=== PATIENT | male | born 1980 | race African-American/Black ===

== ENCOUNTER 2018-11-17 16:37 | Inpatient (IN) ==
[2018-11-17] MEDS ORDERED: MoRPHine SULFATE 4 MG/ML 1 ML CARP\\VIAL IV STA (17:45)
[2018-11-17] MEDS ORDERED: ONDANSETRON INJ 2 MG/ML 2 ML VIAL IV STA (17:45)
[2018-11-17] MEDS ORDERED: SODIUM CHLORIDE 0.9% 1000ML 1,000 ML IV SCH (17:45)
[2018-11-17] MEDS ORDERED: ACETAMINOPHEN 1000 MG/100 ML IV IV STA (17:48)
[2018-11-17 18:10] LABS: Basophils # (auto) 0.04 K/uL (0-0.2); Basophils % (auto) 0.2 %; Eosinophils # (auto) 0.26 K/uL (0-0.5); Eosinophils % (auto) 1.3 %; Hematocrit (blood only) 44.3 % (42-52); Immature Granulocytes # (auto) 0.06 K/uL (0.00-0.02); Immature Granulocytes % (auto) 0.3 %; Lymphocytes # (auto) 2.73 K/uL (1.2-3.4); Lymphocytes % (auto) 13.5 %; Mean Corpuscular Hemoglobin 31.7 pg (25-34); Mean Corpuscular Hgb Conc 36.1 g/dL (32-36); Mean Corpuscular Volume 87.9 fL (80-100); Mean Platelet Volume 9.7 fL (7.4-10.4); Monocytes # (auto) 1.67 K/uL (0.11-0.59); Monocytes % (auto) 8.3 %; Neutrophils # (auto) 15.41 K/uL (1.4-6.5); Neutrophils % (auto) 76.4 %; Platelet Count 225 K/uL (130-400); RDW Coefficient of Variation 12.5 % (11.5-14.5); Red Blood Count 5.04 M/uL (4.7-6.1); White Blood Count 20.17 K/uL (4.8-10.8)
[2018-11-17 18:22] LABS: INR 1.1 (0.9-1.1); Partial Thromboplastin Ratio 1.1; Partial Thromboplastin Time 28.8 Seconds (21.0-31.0); Prothrombin Time 10.9 Seconds (9.0-12.0)
[2018-11-17 18:35] LABS: Albumin Level 3.5 gm/dl (3.4-5.0); BUN Creatinine Ratio 14.3 (10-20); Calcium 8.9 mg/dl (8.5-10.1); Creatinine Clr Calc Pharmacy 129.1 ml/min; Est GFR (African American) 123.6; Est GFR (Non-African American) 106.6
[2018-11-17 18:40] LABS: Albumin Globulin Ratio 0.8 (0.9-2); Bilirubin,Total 1.3 mg/dl (0.2-1); Globulin 4.3 gm/dl (2.5-4.0); Lipase 68 U/L (73-393); Magnesium 2.3 mg/dl (1.8-2.4); Total Protein 7.8 gm/dl (6.4-8.2); Troponin I < 0.015 ng/ml (0-0.045)
--- NOTE | 2018-11-17 19:09 | Emergency Department Note ---
History of Present Illness General Chief complaint: Abdominal Pain Stated complaint: REBOUND TENDERNESS EPIGASTRIC AREA Time Seen by Provider: 11/17/18 17:34 History of Present Illness Maximum Pain Intensity: 7 This is a 38-year-old male that presents to the emergency department via private vehicle with immigration services officer escort [facility] with complaints of "abdominal pain". The patient notes that for the past 4 days he has been expensing epigastric abdominal pain that radiates to the right side. He had this before one time in May but has not had it since then up until 4 days ago. He rates the overall pain is a 7/10. He also feels chills. He denies any pertinent past medical problems. He denies any chest pain or shortness of breath. Home Medications Home Medications Medication Instructions Recorded Confirmed Type levalbuterol tartrate [Xopenex HFA] 2 inh INHALATION QID PRN 02/06/18 11/17/18 History Allergies Allergy/AdvReac Type Severity Reaction Status Date / Time No Known Allergies Allergy Unverified 11/17/18 18:20 Past Med/Surg History Medical History Asthma Surgical History No pertinent past surgical history Social History Preferred Language: Armenian Current Living Situation: Other Current Living Situation Comment: Detention Feels Safe at Home: Yes Smoking Status: Former smoker Review of Systems A total of 10 systems reviewed and were otherwise negative Physical Exam Vital Signs Vital Signs - 24 hr 11/17/18 16:41 11/17/18 17:38 11/17/18 17:56 Temperature 38.7 C H Temperature Source Oral Sepsis Recent Fever Within 48 Hours Yes Sepsis New/Unexplained Change in Mental Status No Sepsis Action Taken by Nursing No Action Required Pulse Rate 97 H 90 86 Pulse Rate [Apical] Pulse Rate from SpO2 Sensor 87 Pulse Rhythm Regular Respiratory Rate 18 20 27 H Respiratory Effort / Characteristics Non-Labored Spontaneous Respiratory Depth Normal Blood Pressure 142/85 H Blood Pressure [Left Arm] Blood Pressure Mean 104 Blood Pressure Mean [Left Arm] Blood Pressure Position Sitting Pulse Oximetry 97 97 96 Oxygen Delivery Method Room Air Room Air 11/17/18 18:00 08/21/19 18:38 11/17/18 19:00 Temperature Temperature Source Sepsis Recent Fever Within 48 Hours Sepsis New/Unexplained Change in Mental Status Sepsis Action Taken by Nursing Pulse Rate 90 89 Pulse Rate [Apical] 90 Pulse Rate from SpO2 Sensor 89 88 Pulse Rhythm Respiratory Rate 24 20 34 H Respiratory Effort / Characteristics Respiratory Depth Blood Pressure Blood Pressure [Left Arm] 133/75 Blood Pressure Mean Blood Pressure Mean [Left Arm] 94 Blood Pressure Position Pulse Oximetry 95 97 96 Oxygen Delivery Method Room Air 11/17/18 19:03 11/17/18 20:00 11/17/18 20:46 Temperature 37.2 C Temperature Source Oral Sepsis Recent Fever Within 48 Hours Sepsis New/Unexplained Change in Mental Status Sepsis Action Taken by Nursing Pulse Rate 98 H 81 Pulse Rate [Apical] Pulse Rate from SpO2 Sensor Pulse Rhythm Respiratory Rate 18 20 Respiratory Effort / Characteristics Respiratory Depth Blood Pressure 133/75 129/72 Blood Pressure [Left Arm] Blood Pressure Mean 94 91 Blood Pressure Mean [Left Arm] Blood Pressure Position Pulse Oximetry 97 Oxygen Delivery Method Room Air VITAL SIGNS - Vital signs and nursing notes were reviewed. Stable however the patient is tachycardic and febrile. GENERAL -38-year-old male appearing his stated age who is in no acute distress but appears ill. Communicates well with provider and answers questions appropriately. SKIN - Without rashes. No meningeal or petechial rash. HEAD - NC/AT. EYES - PERRL with EOMI bilaterally. Sclera anicteric. EARS - No deformities of external structures noted on gross examination b ilaterally. NOSE - Midline and without cyanosis. No epistaxis or purulent drainage noted. MOUTH/OROPHARYNX - Without perioral cyanosis. NECK - Neck with FROM. Supple to palpation. No lymphadenopathy noted. No nuchal rigidity. LUNGS - Chest wall symmetric without accessory muscle use, intercostals retractions, or central cyanosis. Normal vesicular breath sounds CTA B/L. No wheezes, rales, or rhonchi appreciated. CARDIAC - RRR with S1/S2. No murmur, rubs, or gallops appreciated. ABDOMEN - Abdominal contour normal without pulsations or visible masses. BS normoactive all four quadrants. Patient is exquisitely tender to palpation in the epigastric right upper quadrant. No palpable masses, hepatosplenomegaly, or ascites noted. EXTREMITIES - No clubbing or peripheral cyanosis. No pretibial edema present. +5/5 strength noted in UE/LE bilaterally. NEUROLOGIC - Cranial nerves II through XII grossly intact. Sensory intact to light touch throughout. PSYCH - A&Ox3 and cooperates fully with examiner. Pt is very pleasant and interacts well with examiner. Course Administered Medications Hydrocodone Bitart/Acetaminophen (Edmond 5/325) 2 tab PO [id number] PRN PRN Reason: Pain Stop: 12/02/18 00:22 Last Admin: 11/18/18 00:59 Dose: 2 tab Documented by: [id number] Sodium Chloride (Nss 1000ml) 1,000 mls @ 80 mls/hr IV .[id number] WAI Stop: 12/18/18 00:22 Last Admin: 11/18/18 00:55 Dose: 80 mls/hr Documented by: [id number] Discontinued Medications Acetaminophen (Ofirmev) 1,000 mg IV NOW STA Stop: 11/17/18 17:49 Last Admin: 11/17/18 19:01 Dose: 1,000 mg Documented by: [id number] Bupivacaine HCl (Marcaine 0.5% Mpf) Confirm Administered Dose 30 ml .ROUTE .STK- MED ONE Stop: 11/17/18 20:25 Last Admin: 11/17/18 22:09 Dose: 10 ml Documented by: [id number] Sodium Chloride (Nss 1000ml) 1,000 mls @ 999 mls/hr IV .[id number] WAI Stop: 11/17/18 18:45 Last Infusion: 11/17/18 20:38 Dose: 0 mls/hr Documented by: [id number] Admin: 11/17/18 19:02 Dose: 999 mls/hr Documented by: [id number] Acetaminophen (Ofirmev) 1,000 mg in 100 mls @ 400 mls/hr IV NOW ONE Stop: 11/18/18 00:37 Last Admin: 11/18/18 00:55 Dose: 400 mls/hr Documented by: [id number] Ioversol (Optiray 320 100ml) 94 ml IV ONCE PRN PRN Reason: Interaction Checking Stop: 11/21/18 19:47 Last Admin: 11/17/18 19:48 Dose: 94 ml Documented by: [id number] Miscellaneous (Floseal Hemostatic Matrix 10ml) 10 ml TOP ONCE ONE Stop: 11/17/18 21:56 Last Admin: 11/17/18 22:11 Dose: 10 ml Documented by: [id number] Morphine Sulfate (Morphine Sulfate) 4 mg IV NOW STA Stop: 11/17/18 17:46 Last Admin: 11/17/18 19:01 Dose: 4 mg Documented by: [id number] Ondansetron HCl (Zofran) 4 mg IV NOW STA Stop: 11/17/18 17:46 Last Admin: 11/17/18 19:01 Dose: 4 mg Documented by: [id number] Piperacillin Sod/Tazobactam Sod (Zosyn) Confirm Administered Dose 4.5 gm .ROUTE .STK-MED ONE Stop: 11/17/18 20:31 Last Admin: 11/17/18 20:39 Dose: 4.5 gm Documented by: [id number] Medical Decision Making Laboratory Data Result diagrams: 11/17/18 17:59 11/17/18 17:59 Lab Results 11/17/18 11/17/18 11/17/18 Range/Units 17:59 17:59 17:59 WBC 20.17 H (4.8-10.8) K/uL RBC 5.04 (4.7-6.1) M/uL Hgb 16.0 (14.0-18.0) g/dL Hct 44.3 (42-52) % MCV 87.9 (80-100) fL MCH 31.7 (25-34) pg MCHC 36.1 H (32-36) g/dL RDW Std Deviation 40.0 (36.4-46.3) fL RDW Coeff of Macrina 12.5 (11.5-14.5) % Plt Count 225 (130-400) K/uL MPV 9.7 (7.4-10.4) fL Immature Gran % (Auto) 0.3 % Neut % (Auto) 76.4 % Lymph % (Auto) 13.5 % Antelope % (Auto) 8.3 % Eos % (Auto) 1.3 % Baso % (Auto) 0.2 % Immature Gran # (Auto) 0.06 H (0.00-0.02) K/uL Neut # (Auto) 15.41 H (1.4-6.5) K/uL Lymph # (Auto) 2.73 (1.2-3.4) K/uL Antelope # (Auto) 1.67 H (0.11-0.59) K/uL Eos # (Auto) 0.26 (0-0.5) K/uL Baso # (Auto) 0.04 (0-0.2) K/uL PT 10.9 (9.0-12.0) Seconds INR 1.1 (0.9-1.1) APTT 28.8 (21.0-31.0) Seconds PTT Ratio 1.1 Sodium 138 (136-145) mmol/L Potassium 4.0 (3.5-5.1) mmol/L Chloride 108 H (98-107) mmol/L Carbon Dioxide 24 (21-32) mmol/L Anion Gap 5.0 (3-11) BUN 13 (7-18) mg/dl Creatinine 0.92 (0.6-1.4) mg/dl Est Cr Clr Drug Dosing 129.1 ml/min Est GFR ( Amer) 123.6 Est GFR (Non-Af Amer) 106.6 BUN/Creatinine Ratio 14.3 (10-20) Glucose 103 H (70-99) mg/dl Lactate (0.4-2.0) mmol/L Calcium 8.9 (8.5-10.1) mg/dl Magnesium (1.8-2.4) mg/dl Total Bilirubin 1.3 H (0.2-1) mg/dl AST 21 (15-37) U/L ALT 39 (12-78) U/L Alkaline Phosphatase 84 (45-117) U/L Troponin I (0-0.045) ng/ml Total Protein 7.8 (6.4-8.2) gm/dl Albumin 3.5 (3.4-5.0) gm/dl Globulin 4.3 H (2.5-4.0) gm/dl Albumin/Globulin Ratio 0.8 L (0.9-2) Lipase (73-393) U/L Urine Color Urine Appearance (Clear) Urine pH (4.5-7.5) Ur Specific Parker (1.000-1.030) Urine Protein (Negative) Urine Glucose (UA) (Negative) Urine Ketones (Negative) Urine Blood (Negative) Urine Nitrite (Negative) Urine Bilirubin (Negative) Urine Urobilinogen (Negative) Ur Leukocyte Esterase (Negative) Urine WBC (Auto) (0-5) /hpf Urine RBC (Auto) (0-4) /hpf U Hyaline Cast (Auto) (0-5) /lpf U Epithel Cells (Auto) (0-5) /lpf Urine Bacteria (Auto) (Negative) 11/17/18 11/17/18 11/17/18 Range/Units 17:59 17:59 20:35 WBC (4.8-10.8) K/uL RBC (4.7-6.1) M/uL Hgb (14.0-18.0) g/dL Hct (42-52) % MCV (80-100) fL MCH (25-34) pg MCHC (32-36) g/dL RDW Std Deviation (36.4-46.3) fL RDW Coeff of Macrina (11.5-14.5) % Plt Count (130-400) K/uL MPV (7.4-10.4) fL Immature Gran % (Auto) % Neut % (Auto) % Lymph % (Auto) % Antelope % (Auto) % Eos % (Auto) % Baso % (Auto) % Immature Gran # (Auto) (0.00-0.02) K/uL Neut # (Auto) (1.4-6.5) K/uL Lymph # (Auto) (1.2-3.4) K/uL Antelope # (Auto) (0.11-0.59) K/uL Eos # (Auto) (0-0.5) K/uL Baso # (Auto) (0-0.2) K/uL PT (9.0-12.0) Seconds INR (0.9-1.1) APTT (21.0-31.0) Seconds PTT Ratio Sodium (136-145) mmol/L Potassium (3.5-5.1) mmol/L Chloride (98-107) mmol/L Carbon Dioxide (21-32) mmol/L Anion Gap (3-11) BUN (7-18) mg/dl Creatinine (0.6-1.4) mg/dl Est Cr Clr Drug Dosing ml/min Est GFR ( Amer) Est GFR (Non-Af Amer) BUN/Creatinine Ratio (10-20) Glucose (70-99) mg/dl Lactate 0.8 (0.4-2.0) mmol/L Calcium (8.5-10.1) mg/dl Magnesium 2.3 (1.8-2.4) mg/dl Total Bilirubin (0.2-1) mg/dl AST (15-37) U/L ALT (12-78) U/L Alkaline Phosphatase (45-117) U/L Troponin I < 0.015 (0-0.045) ng/ml Total Protein (6.4-8.2) gm/dl Albumin (3.4-5.0) gm/dl Globulin (2.5-4.0) gm/dl Albumin/Globulin Ratio (0.9-2) Lipase 68 L (73-393) U/L Urine Color Dark Yellow Urine Appearance Clear (Clear) Urine pH 6.5 (4.5-7.5) Ur Specific Parker 1.035 H (1.000-1.030) Urine Protein Trace H (Negative) Urine Glucose (UA) Negative (Negative) Urine Ketones 1+ H (Negative) Urine Blood Trace H (Negative) Urine Nitrite Negative (Negative) Urine Bilirubin Negative (Negative) Urine Urobilinogen Negative (Negative) Ur Leukocyte Esterase Negative (Negative) Urine WBC (Auto) 1-5 (0-5) /hpf Urine RBC (Auto) 5-10 H (0-4) /hpf U Hyaline Cast (Auto) 1-5 (0-5) /lpf U Epithel Cells (Auto) 10-20 H (0-5) /lpf Urine Bacteria (Auto) Negative (Negative) Imaging Data Radiologist's Impression: CT abd pelvis IV con only CT DOSE: 994.06 mGy.cm HISTORY: Pain. Nausea. epigastric abd pain TECHNIQUE: Multiaxial CT images of the abdomen and pelvis were performed following the use of intravenous contrast. A dose lowering technique was utilized adhering to the principles of ALARA. COMPARISON STUDY: None. FINDINGS: Lung bases are clear. Liver spleen and pancreas are unremarkable. Moderate gallbladder wall thickening with a least one 1 cm calcification in the gallbladder neck. Moderate pericholecystic edematous and/or infiltrative change. This appearance is suggestive of acute cholecystitis. The adrenal glands are normal. The kidneys enhance uniformly. Nonobstructive bowel pattern. Normal appendix. Bladder is midline. No free fluid within the pelvic cul-de-sac. IMPRESSION: 1. Findings highly suggestive of acute cholecystitis. 2. Right upper quadrant ultrasound is recommended for confirmation. 3. Study is otherwise negative. The above report was generated using voice recognition software. It may contain grammatical, syntax or spelling errors. Electronically signed by: Gato Melendez M.D. 11/17/2018 7:57 PM MDM Narrative Patient was seen and evaluated as above in room B5. Review was performed of nursing notes and vital signs. After obtaining a thorough history and physical examination the above work up was performed. He presents to us today with abdominal pain. He does appear ill and has a fever. He does not appear toxic though however. He is tender in the right upper quadrant and epigastric region. I am concerned about acute cholecystitis given the patient's febrile state and tenderness on exam. IV access was established. CBC reveals leukocytosis at 20.17. No anemia. No emergent metabolic disturbance. T bili 1.3. Lipase was not elevated. Troponin is negative. Patient's urinalysis does not reveal infection. CT scan was obtained given the patient's presentation and this does reveal findings highly suggestive of acute cholecystitis. I discussed this with the general surgeon who came to evaluate the patient. This was Dr. Jimenez. Patient will be taken to the operative suite for surgical management of his suspected acute cholecystitis. Patient was educated upon findings. While here he was medicated in the department with IV morphine, Zofran and hydrated with fluids. To help with the fever he was also given IV Tylenol. Case was discussed with the attending physician. In the evaluation and treatment of this patient, the following differential diagnoses were considered: ASC, WI, Pneumonia, GERD, Cholecystitis, Ascending Cholangitis, Cholydocholithiasis, Bowel Obstruction, PE, Amongst Others. Impression & Plan Acute cholecystitis, Fever, Abdominal right upper quadrant tenderness Discharge Plan Visit Data *Final* Discharge Date/Time: 11/17/18 20:46 Chief Complaint: Abdominal Pain Stated Complaint: REBOUND TENDERNESS EPIGASTRIC AREA ED Provider: Henry Amador ED Midlevel Provider: Med Salazar Discharge Problem: Acute cholecystitis, Fever, Abdominal right upper quadrant tenderness Patient Disposition: Admitted As Inpatient Condition: Good Discharge Instructions Interventions: ED Discharge Assessment Last Done: 11/17/18 20:46
[2018-11-17] MEDS ORDERED: IOVERSOL 100ml IV PRN (19:48)
--- NOTE | 2018-11-17 20:00 | CT Scan Report ---
CT abd pelvis IV con only CT DOSE: 994.06 mGy.cm HISTORY: Pain. Nausea. epigastric abd pain TECHNIQUE: Multiaxial CT images of the abdomen and pelvis were performed following the use of intrave nous contrast. A dose lowering technique was utilized adhering to the principles of ALARA. COMPARISON STUDY: None. FINDINGS: Lung bases are clear. Liver spleen and pancreas are unremarkable. Moderate gallbladder wall thickening with a least one 1 cm calcification in the gallbladder neck. Moderate pericholecystic edematous and/or infiltrative change. This appearance is suggestive of acute cholecystitis. The adrenal glands are normal. The kidneys enhance uniformly. Nonobstructive bowel pattern. Normal appendix. Bladder is midline. No free fluid within the pelvic cul-de-sac. IMPRESSION: 1. Findings highly suggestive of acute cholecystitis. 2. Right upper quadrant ultrasound is recommended for confirmation. 3. Study is otherwise negative. The above report was generated using voice recognition software. It may contain grammatical, syntax or spelling errors. Electronically signed by: Gato Melendez M.D. 11/17/2018 7:57 PM
[2018-11-17] MEDS ORDERED: BUPIVACAINE 0.5 % 5 MG/1 ML MPF 30ML VIAL ONE (20:24)
--- NOTE | 2018-11-17 20:25 | History & Physical Report ---
Date of Service November 17, 2018 Assessment & Plan (1) Gangrenous cholecystitis: for laparoscopic cholecystectomy, possible open operation as soon as possible History of Present Illness Primary Care Provider: JOVANY Mcmillan to ER with abd pain and fever found on CT w/ severe acute cholecystitis- likely necritizing fever and elevated wbc h/o asthma- uses inhaler Allergies Allergy/AdvReac Type Severity Reaction Status Date / Time No Known Allergies Allergy Unverified 11/17/18 18:20 Home Medications Home Medications Medication Instructions Recorded Confirmed Type levalbuterol tartrate [Xopenex HFA] 2 inh INHALATION QID PRN 02/06/18 11/17/18 History Past Med/Surg History Medical History Asthma Social History Preferred Language: Armenian Current Living Situation: Other Current Living Situation Comment: [facility] Feels Safe at Home: Yes Smoking Status: Former smoker Review of Systems All systems reviewed & are unremarkable except as noted in HPI & below Physical Exam Physical Exam: RUQ tenderness Constitutional: well developed, well nourished and + ill appearing; no acute distress Respiratory: normal respiratory effort; no respiratory distress Cardiovascular: Rate/Rhythm: regular rate Chest (Breasts): Chest: normal inspection of chest Gastrointestinal (Abdomen): Percussion/Palpation: + abdomen tender and abdomen soft Musculoskeletal: Head/Neck/Chest: head atraumatic Skin: no rashes, warm and dry Neurologic: awake Psychiatric: Orientation: alert Results & Data Vital Signs (Past 12 Hours) Vital Signs Temp Pulse Pulse Resp BP BP Pulse Ox 11/17/18 18:38 90 20 133/75 97 11/17/18 17:38 90 20 97 11/17/18 16:41 38.7 C H 97 H 18 142/[address] scan
[2018-11-17] MEDS ORDERED: PIPERACILL/TAZOBAC CONSULT ACTIVE PRN (20:29)
[2018-11-17] MEDS ORDERED: PIPERACILLIN/TAZOBACTAM 4.5 GM/120ML D5W ONE (20:30)
[2018-11-17 20:49] LABS: Appearance Urine Clear (Clear); Bacteria Urine Automated Negative (Negative); Bilirubin Urine Negative (Negative); Blood Urine Trace (Negative); Color Urine Dark Yellow; Glucose Urine UA Negative (Negative); Ketones Urine 1+ (Negative); Leukocyte Esterase Urine Negative (Negative); Nitrite Urine Negative (Negative); Protein Urine Trace (Negative); Specific Gravity Urine 1.035 (1.000-1.030); Urobilinogen Urine Negative (Negative); pH Urine 6.5 (4.5-7.5)
[2018-11-17] MEDS ORDERED: HYDROmorphone INJ 2 MG/ML SYR/VIAL IV PRN (20:58)
[2018-11-17] MEDS ORDERED: PROMETHAZINE HCL 6.25 MG in SODIUM CHLORIDE 0.9% 50 ML IV PRN (20:58)
[2018-11-17] MEDS ORDERED: ATROPINE SULFATE 0.1 MG/ML 10ML SYR IV PRN (20:58)
[2018-11-17] MEDS ORDERED: ePHEDrine sulfate 50 MG/ML AMP IV PRN (20:58)
[2018-11-17] MEDS ORDERED: ONDANSETRON INJ 2 MG/ML 2 ML VIAL IV PRN (20:58)
[2018-11-17] MEDS ORDERED: fentaNYL citrate 100 MCG/2 ML VIAL IV PRN (20:58)
--- NOTE | 2018-11-17 20:58 | Anesthesiology Consultation ---
Date of Service November 17, 2018 Assessment & Plan (1) Encounter for pre-operative examination: Chart Review Chart Review: Acceptable Risk for Surgery and Patient NOT seen in Pre Admission Testing Consults Requested none ASA [id number] Proposed Anesthesia Anesthesia Type: General (+ RSI) Risk / Benefits Reviewed With: PT / POA / Parent / Guardian, Accepts Plan and Informed Consent Obtained History Surgery Operation Date: 11/17/18 20:15 Proposed Procedures p Laparoscopic Cholecystectomy - Noel Jimenez MD, FACS Height/Weight Height: 6 ft 2 in Weight: 98.6 kg Allergies Allergy/AdvReac Type Severity Reaction Status Date / Time No Known Allergies Allergy Unverified 11/17/18 18:20 Medications Home Medications Medication Instructions Recorded Confirmed Last Taken levalbuterol tartrate [Xopenex HFA] 2 inh INHALATION QID PRN 02/06/18 11/17/18 Unknown Active Medications Generic Name Dose Route Start Last Admin Trade Name Freq PRN Reason Stop Dose Admin Ioversol 94 ml 11/17/18 19:48 11/17/18 19:48 Optiray 320 100ml IV 11/21/18 19:47 94 ml ONCE PRN Administration Interaction Checking NPO Date Last Intake of Fluids: 11/17/18 Time Last Intake of Fluids: 14:00 Date Last Intake of Solids: 11/17/18 Time Last Intake of Solids: 14:00 Past Medical History Medical History Asthma Exercise / Class Metabolic Activity II 4-5 Yardwork/Stairs/Walk up hill Past Anesthesia History No Hx of Anesthesia Complications and No Family Hx of Anesthesia Complications History of PONV No Hx of PONV and No Hx of Motion Sickness Social History Smoking Status: Former smoker Physical Exam Vital Signs Last Vital Signs Temp 37.2 C 11/17/18 20:00 Pulse 81 11/17/18 20:00 Resp 20 11/17/18 20:00 BP 129/72 11/17/18 20:00 Pulse Ox 97 11/17/18 20:00 ENMT Mouth: no dentition abnormality Thyromental Distance: > or= 3.5 Finger Breadths Mallampati Class: II Neck normal visual inspection Respiratory normal respiratory effort Auscultation: lungs clear to auscultation bilaterally Cardiovascular Rate/Rhythm: regular rate and regular rhythm Psychiatric Orientation: alert Testing Laboratory Results 11/17/18 17:59 11/17/18 17:59 PT 10.9 Seconds (9.0-12.0) 11/17/18 17:59 INR 1.1 (0.9-1.1) 11/17/18 17:59 APTT 28.8 Seconds (21.0-31.0) 11/17/18 17:59 Urine Color Dark Yellow 11/17/18 20:35 Urine Appearance Clear (Clear) 11/17/18 20:35 Urine pH 6.5 (4.5-7.5) 11/17/18 20:35 Ur Specific Ariel 1.035 (1.000-1.030) H 11/17/18 20:35 Urine Protein Trace (Negative) H 11/17/18 20:35 Urine Glucose (UA) Negative (Negative) 11/17/18 20:35 Urine Ketones 1+ (Negative) H 11/17/18 20:35 Urine Nitrite Negative (Negative) 11/17/18 20:35 Ur Leukocyte Esterase Negative (Negative) 11/17/18 20:35 Urine WBC (Auto) 1-5 /hpf (0-5) 11/17/18 20:35 Urine RBC (Auto) 5-10 /hpf (0-4) H 11/17/18 20:35 U Hyaline Cast (Auto) 1-5 /lpf (0-5) 11/17/18 20:35 U Epithel Cells (Auto) 10-20 /lpf (0-5) H 11/17/18 20:35 Urine Bacteria (Auto) Negative (Negative) 11/17/18 20:35
[2018-11-17] MEDS ORDERED: fentaNYL citrate 100 MCG/2 ML VIAL ONE (21:01)
[2018-11-17] MEDS ORDERED: MoRPHine SULFATE PF 1 MG/ML 10 ML AMP/VIAL ONE (21:23)
[2018-11-17] MEDS ORDERED: SUCCINYLCHOLINE CHLORIDE 20 MG/ML 10 ML VIAL ONE (21:47)
[2018-11-17] MEDS ORDERED: PROPOFOL IV EMULSION 10 MG/ML 20 ML VIAL IV ONE (21:47)
[2018-11-17] MEDS ORDERED: ROCURONIUM BROMIDE 10 MG/ML 5 ML VIAL ONE (21:47)
[2018-11-17] MEDS ORDERED: KETOROLAC 30 MG/ML VIAL ONE (21:47)
[2018-11-17] MEDS ORDERED: DEXAMETHASONE SOD INJ 4 MG/ML VIAL ONE (21:47)
[2018-11-17] MEDS ORDERED: ONDANSETRON INJ 2 MG/ML 2 ML VIAL ONE (21:47)
[2018-11-17] MEDS ORDERED: LIDOCAINE HCL 2% 2 ML VIAL/AMP(20MG/ML) INFIL ONE (21:47)
[2018-11-17] MEDS ORDERED: ALBUTEROL HFA INHALER 8.5 GM ONE (21:47)
[2018-11-17] MEDS ORDERED: GLYCOPYRROLATE 0.2 MG/ML VIAL ONE (21:53)
[2018-11-17] MEDS ORDERED: NEOSTIGMINE METHYLSULFATE 5 MG/5 ML SYR ONE (21:53)
[2018-11-17] MEDS ORDERED: FLOSEAL HEMOSTATIC MATRIX 10ML TOP ONE (21:55)
--- NOTE | 2018-11-17 22:11 | Operative Report ---
Post Operative Report Pre & Post Diagnosis Operation Date: 11/17/18 20:15 Pre-Op Diagnosis: Gangrenous cholecystitis Post-Op Diagnosis: Gangrenous cholecystitis adhesions, severe chronic disease Procedure Operation Date: 11/17/18 20:15 Actual Procedures p Laparoscopic Cholecystectomy(Not Applicable) - Noel Jimenez MD, FACS lysis of adhesions Surgeon Noel Jimenez MD, FACS Manager Ct nurses Estimated Blood Loss 20 Findings Consistent with Post-Op Diagnosis Specimens gallbladder Description of Procedure see dictation I attest to the content of the Intraoperative Record and any orders documented therein. Any exceptions are noted below.
--- NOTE | 2018-11-17 22:56 | Anesthesiology Progress Note ---
Date of Service November 17, 2018 Anesthesia Post Procedure Vital Signs Vital Signs: Temp Pulse Pulse Resp BP BP Pulse Ox 11/17/18 22:45 80 17 115/67 92 11/17/18 22:35 83 18 122/69 94 11/17/18 22:29 36.5 C 87 16 139/72 92 11/17/18 20:00 37.2 C 81 20 129/72 97 11/17/18 19:03 98 H 18 133/75 11/17/18 19:00 89 34 H 96 11/17/18 18:38 90 20 133/75 97 11/17/18 18:00 90 24 95 11/17/18 17:56 86 27 H 96 11/17/18 17:38 90 20 97 11/17/18 16:41 38.7 C H 97 H 18 142/85 H 97 Pain Intensity Medial Chest: Pain Intensity: 4 Transfer of Care Handoff Completed per policy Notes Mental Status: alert / awake / arousable Patient Amnestic to Procedure: Yes Nausea / Vomiting: adequately controlled Pain: adequately controlled Airway Patency, RR, SpO2: stable & adequate BP & HR: stable & adequate Hydration State: stable & adequate Anesthetic Complications: no major complications apparent and Pt Satisfied with anesthetic care
[2018-11-18] MEDS ORDERED: PIPERACILL/TAZOBAC CONSULT ACTIVE PRN (00:23)
[2018-11-18] MEDS ORDERED: LEVALBUTEROL TARTRATE 15 GM HFA.AER.AD INH PRN (00:23)
[2018-11-18] MEDS ORDERED: PROMETHAZINE HCL 12.5 MG in SODIUM CHLORIDE 0.9% 50 ML IV PRN (00:23)
[2018-11-18] MEDS ORDERED: HYDROCODONE/ACETAMOPHEN 5/325MG TAB PO PRN (00:23)
[2018-11-18] MEDS ORDERED: HYDROmorphone INJ 0.5 MG/0.5 ML SYR IV PRN (00:23)
[2018-11-18] MEDS ORDERED: ACETAMINOPHEN 1,000 MG/100 ML VIAL IV ONE (00:23)
[2018-11-18] MEDS ORDERED: IBUPROFEN 600 MG TAB PO PRN (00:23)
[2018-11-18] MEDS ORDERED: HYDROmorphone INJ 1 MG/ML SYRINGE IV PRN (00:23)
[2018-11-18] MEDS ORDERED: PROMETHAZINE HCL 25 MG in SODIUM CHLORIDE 0.9% 50 ML IV PRN (00:23)
[2018-11-18] MEDS ORDERED: PIPERACILLIN/TAZOBACTAM 3.375 GM in DEXTROSE 5% 100 ML IV SCH (00:23)
[2018-11-18] MEDS ORDERED: ONDANSETRON INJ 2 MG/ML 2 ML VIAL IV PRN (00:23)
--- NOTE | 2018-11-18 00:28 | Operative Report ---
DATE OF OPERATION: 11/17/2018 NAME OF OPERATION: Laparoscopic cholecystectomy with lysis of adhesions. PREOPERATIVE DIAGNOSIS: Necrotizing cholecystitis. 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 STAFF SURGEON: Noel Jimenez MD ANESTHESIA: General. DESCRIPTION OF PROCEDURE: The patient was brought in the operating room and placed on the operating table in supine position. Abdomen was prepped and draped in usual fashion. Pneumatic stockings and orogastric tube were placed. A 0.5% plain Marcaine was used to anesthetize all incisions. Incision was made above the umbilicus, carrying dissection down to the fascia, placing a Veress needle producing pneumoperitoneum. An 11 mm port was placed at this level and then under visualization, three 5 mm ports placed, 1 cephalad and 2 laterally. There were significant adhesions to the gallbladder from severe inflammation. These were taken down. The gallbladder was gangrenous. It was very thick. I attempted to retract the gallbladder. It opened. We did expose some bile, but it was aspirated, a stone came out. It was placed in an Endobag and remained in the abdomen during the operation in the bag. The gallbladder was extremely hard to dissect away from the liver. I was able to identify what I felt were the cystic duct and cystic artery. These were clipped and transected. The gallbladder was then dissected away from the liver with some difficulty secondary to severe chronic inflammation. It was then placed into the Endobag. After appropriate irrigation and hemostasis, I did place some FloSeal in the liver bed. A #15 round Abraham-Gomes drain was placed through the lateral 5 mm port site into the subhepatic space, secured to the skin using 3-0 nylon suture. The gallbladder was then removed through the umbilical site. I did have to enlarge the skin and fascial incisions because of the size of the gallbladder. All ports were removed. Fascia closed using interrupted 0 PDS suture. Skin reapproximated using 4-0 nylon suture. The patient transferred to recovery room in stable condition. I attest to the content of the Intraoperative Record and any orders documented therein. Any exception s are noted below.
[2018-11-18] MEDS: SODIUM CHLORIDE 0.9% 1000ML 1,000 ML IV SCH ×2 (00:55→13:24)
[2018-11-18] MEDS: HYDROCODONE/ACETAMOPHEN 5/325MG TAB PO PRN ×3 (00:59→15:39)
[2018-11-18] MEDS: PIPERACILLIN/TAZOBACTAM 4.5 GM in DEXTROSE 5% 100 ML IV SCH ×3 (01:29→17:16)
--- NOTE | 2018-11-18 02:04 | Consultation Report ---
DATE OF CONSULTATION: 11/18/2018 CHIEF COMPLAINT: Abdominal pain, found to have gangrenous cholecystitis. HISTORY OF PRESENT ILLNESS: This is a 38-year-old male with past medical history significant for asthma, currently in assisted, comes because of ongoing abdominal pain since last 5 days. He is not able to eat anything because of feeling a burning sensation in the throat. Denies any nausea, vomiting .He was feeling cold and he was soaking in sweat, which brought him to the hospital. Ct scan showed cholecystitis.Surgery took him for emergent surgery because of gangrenous cholecystitis, status post surgery, tolerated the procedure okay. Complaining of some soreness at the surgical site. Denies any headache. No blurred vision, no earache, no runny nose, no sore throat. He has cough because he has asthma and he gets some shortness of breath sometimes because of his asthma. Denies chest pain. Last bowel movement was a couple of days ago and it was normal. No blood in the stools or black stools. He says he is not drinking much water and is not micturating much, but denies any burning micturition or hematuria. No swelling in the legs, no rash. Denies any history of easy bleeding. ALLERGIES: No known drug allergies. PAST MEDICAL HISTORY: As mentioned above. PAST SURGICAL HISTORY: Laparoscopic cholecystectomy. MEDICATIONS: Xopenex p.r.n. FAMILY HISTORY: The patient denies any significant family history. SOCIAL HISTORY: The patient quit smoking 1 week ago. Occasional alcohol use, no drug use. REVIEW OF SYSTEMS: As per HPI. Rest of the review of systems negative. PHYSICAL EXAMINATION: GENERAL: The patient is alert and oriented, not in acute distress. VITAL SIGNS: Temperature 36.6, pulse 70, respiratory rate 18, blood pressure 137/68, oxygen 95% on 2 liters. HEENT: No pallor, no icterus. NECK: No JVD, no neck masses, no carotid bruits. CARDIOVASCULAR: S1, S2 heard, regular rate and rhythm, no murmur, no gallop. RESPIRATORY SYSTEM: Normal AP diameter. No accessory muscle use. No wheezing, no crackles. ABDOMEN: Soft. Status post laparoscopic cholecystectomy. Dressing and drain intact. Bowel sounds sluggish. CENTRAL NERVOUS SYSTEM: Nonfocal. EXTREMITIES: No edema, no erythema. LABORATORY DATA: WBC 20, hemoglobin 16, hematocrit 44.3, platelets 225. PT 10.9, INR 1.1, APTT 28.8. Sodium 138, potassium 4, chloride 108, bicarbonate 24, BUN 13, creatinine 0.9, serum glucose 103. Lactate 0.8, calcium 8.9, magnesium 2.3, total bilirubin 1.3, AST 21, ALT 39, alkaline phosphatase 84. Troponin I less than 0.015. Lipase 68. Urinalysis negative. IMAGING DATA: CT of abdomen and pelvis shows findings highly suggestive of acute cholecystitis. ASSESSMENT AND PLAN: This is a 38-year-old male who comes from assisted because of ongoing abdominal pain and found to have acute cholecystitis. 1. Acute gangrenous cholecystitis status post emergent surgery. He tolerated the procedure okay. Further pain control and postop management as per surgery. 2. Asthma. Continue his home inhalers p.r.n. We will monitor. 3. Deep venous thrombosis prophylaxis, as per surgery. MINDY
[2018-11-18 05:48] LABS: Basophils # (auto) 0.01 K/uL (0-0.2); Basophils % (auto) 0.1 %; Eosinophils # (auto) 0.01 K/uL (0-0.5); Eosinophils % (auto) 0.1 %; Hematocrit (blood only) 40.1 % (42-52); Hemoglobin 13.9 g/dL (14.0-18.0); Immature Granulocytes # (auto) 0.05 K/uL (0.00-0.02); Immature Granulocytes % (auto) 0.3 %; Lymphocytes # (auto) 1.27 K/uL (1.2-3.4); Lymphocytes % (auto) 8.6 %; Mean Corpuscular Hgb Conc 34.7 g/dL (32-36); Mean Corpuscular Volume 89.5 fL (80-100); Monocytes # (auto) 0.65 K/uL (0.11-0.59); Monocytes % (auto) 4.4 %; Neutrophils # (auto) 12.82 K/uL (1.4-6.5); Neutrophils % (auto) 86.5 %; Platelet Count 205 K/uL (130-400); RDW Coefficient of Variation 12.5 % (11.5-14.5); RDW Standard Deviation 40.8 fL (36.4-46.3); Red Blood Count 4.48 M/uL (4.7-6.1); White Blood Count 14.81 K/uL (4.8-10.8)
[2018-11-18 06:23] LABS: Albumin Level 2.7 gm/dl (3.4-5.0); BUN Creatinine Ratio 12.1 (10-20); Bilirubin Direct 0.5 mg/dl (0-0.2); Calcium 7.8 mg/dl (8.5-10.1); Creatinine Clr Calc Pharmacy 121.2 ml/min; Est GFR (African American) 114.5; Est GFR (Non-African American) 98.8; Potassium 4.3 mmol/L (3.5-5.1)
[2018-11-18 06:36] LABS: Albumin Globulin Ratio 0.7 (0.9-2); Bilirubin,Total 1.5 mg/dl (0.2-1); Globulin 3.7 gm/dl (2.5-4.0); Total Protein 6.4 gm/dl (6.4-8.2)
--- NOTE | 2018-11-18 06:47 | Surgery Progress Note ---
Date of Service November 18, 2018 Assessment & Plan (1) Gangrenous cholecystitis: s/p difficult lap shiv- severe disease- necrotizing has drain- leave 5-7 days, cont IV atbx walk in hallway, check labs adv diet as tolerated Results & Data Vital Signs (Past 12 Hours) Vital Signs Temp Pulse Pulse Pulse Resp BP BP 11/18/18 06:20 11/18/18 02:40 36.5 C 71 18 111/61 11/18/18 01:30 36.4 C L 68 16 111/64 11/18/18 00:30 36.6 C 70 18 137/68 11/18/18 00:00 63 63 18 107/64 11/17/18 23:30 36.5 C 74 16 130/67 11/17/18 23:15 66 18 116/56 L 11/17/18 23:06 69 18 115/61 11/17/18 22:56 82 18 121/67 11/17/18 22:45 80 17 115/67 11/17/18 22:35 83 18 122/69 11/17/18 22:29 36.5 C 87 16 139/72 11/17/18 20:00 37.2 C 81 20 129/72 11/17/18 19:03 98 H 18 133/75 11/17/18 19:00 89 34 H Pulse Ox 11/18/18 06:20 96 11/18/18 02:40 97 11/18/18 01:30 96 11/18/18 00:30 95 11/18/18 00:00 95 11/17/18 23:30 94 11/17/18 23:15 92 11/17/18 23:06 94 11/17/18 22:56 95 11/17/18 22:45 92 11/17/18 22:35 94 11/17/18 22:29 92 11/17/18 20:00 97 11/17/18 19:03 11/17/18 19:00 96 PG Care Time/CCT Total # of Minutes Spent Total Time Spent with Patient: Total time spent is greater than 50% in coordination of care (as documented) at patient's floor/unit and/or counseling patient:
--- NOTE | 2018-11-18 08:05 | Anesthesiology Progress Note ---
Date of Service November 18, 2018 Anesthesia Post Procedure Vital Signs Vital Signs: Temp Pulse Pulse Pulse Resp BP BP 11/18/18 07:56 36.5 C 51 L 16 106/64 11/18/18 06:20 11/18/18 02:40 36.5 C 71 18 111/61 11/18/18 01:30 36.4 C L 68 16 111/64 11/18/18 00:30 36.6 C 70 18 137/68 11/18/18 00:00 63 63 18 107/64 11/17/18 23:30 36.5 C 74 16 130/67 11/17/18 23:15 66 18 116/56 L 11/17/18 23:06 69 18 115/61 11/17/18 22:56 82 18 121/67 11/17/18 22:45 80 17 115/67 11/17/18 22:35 83 18 122/69 11/17/18 22:29 36.5 C 87 16 139/72 11/17/18 20:00 37.2 C 81 20 129/72 11/17/18 19:03 98 H 18 133/75 11/17/18 19:00 89 34 H 11/17/18 18:38 90 20 133/75 11/17/18 18:00 90 24 11/17/18 17:56 86 27 H 11/17/18 17:38 90 20 11/17/18 16:41 38.7 C H 97 H 18 142/85 H Pulse Ox 11/18/18 07:56 93 11/18/18 06:20 96 11/18/18 02:40 97 11/18/18 01:30 96 11/18/18 00:30 95 11/18/18 00:00 95 11/17/18 23:30 94 11/17/18 23:15 92 11/17/18 23:06 94 11/17/18 22:56 95 11/17/18 22:45 92 11/17/18 22:35 94 11/17/18 22:29 92 11/17/18 20:00 97 11/17/18 19:03 11/17/18 19:00 96 11/17/18 18:38 97 11/17/18 18:00 95 11/17/18 17:56 96 11/17/18 17:38 97 11/17/18 16:41 97 Pain Intensity Medial Chest: Pain Intensity: 6 Notes Mental Status: alert / awake / arousable and participated in evaluation Patient Amnestic to Procedure: Yes Nausea / Vomiting: adequately controlled Pain: adequately controlled Airway Patency, RR, SpO2: stable & adequate BP & HR: stable & adequate Hydration State: stable & adequate Anesthetic Complications: no major complications apparent
[2018-11-18] MEDS: DOCUSATE SODIUM/SENNA 50/8.6MG TAB PO SCH ×2 (08:39→20:41)
[2018-11-18] MEDS: HEPARIN SOD 5,000 UNIT/0.5 ML VIAL SQ SCH ×2 (10:16→20:41)
--- NOTE | 2018-11-18 10:27 | Hospitalist Progress Note ---
Date of Service November 18, 2018 Assessment & Plan (1) Gangrenous cholecystitis: POD #1 S/P Lap Cholecystectmoy with lysis of adhesions 2/2 Necrotizing cholecystitis with severe chronic disease and adhesions - Dr. Jimenez tolerated procedure well EBL 20ml; STEFANI drain 50 ml pain/wound management per ortho Continue IV zosyn, wbc trending down; pt afebrile trend WBC, LFT and H/H advance diet as directed by surgery Incentive spirometry encourage bowel prophylaxis per surgery (2) Asthma: no acute exac levalbuterol prn (3) DVT prophylaxis: SQ heparin per surgery Disposition: D/C to longterm when able Follow [facility]: [facility] Patient was seen and examined in collaboration with Dr. Davis, please see addendum Thank you for this consultation. We will follow the patient with you during their hospital stay. You [facility] reach a [facility] via pager @ [phone]. Supervising Physician Co-Signing Physician Notes Patient seen in his room in the afternoon. Doing well postoperatively except for postop pain. Care coordinated with Rena Castillo PA-C. General-no distress Lungs-clear to auscultation Heart-regular Abdomen-nondistended, quiet bowel sounds Extremities-no edema Assessment/Plan: Status post cholecystectomy. Doing well postoperatively. Pulmonary status stable. Continue Xopenex and incentive spirometry. Please refer to GAEL Castillo's documentation regarding other problems. Thank you for this consultation. We will follow the patient with you during their hospital stay. My cell # is [phone]. You can reach a member of the [facility] Medicine Team 20/10 via pager @ [phone]. Subjective Patient was seen and examined in room 352-2, longterm guards at bedside. Follow-up POD #1 acute gangrenous cholecystitis status post cholecystectomy by Dr. Jimenez. Patient complains of right upper quadrant abdominal pain and incisional tenderness. Pain on initial presentation was more epigastric, today mostly RUQ. Improved with analgesia. Much improved from arrival. Denies any fever, chills, chest pain, nausea, vomiting, diarrhea. He is not passing flatus, no BM. Denies dysuria, hematuria. He had eggs and toast this morning, "this is the first I've ate in 4 days." He tolerated breakfast well. Review of Systems Review of Systems: All systems reviewed & are unremarkable except as noted in HPI & below Physical Exam Physical Exam: Gen: WD/WN, M, sitting up in bed, NAD, A&O x3 HEENT: Normocephalic, atraumatic, conjunctivae moist, sclerae anicteric, mucous membranes moist. Lung: Clear to Auscultation bilaterally, no wheezes/rales/rhonchi Heart: Regular rate, regular rhythm, no murmurs, rubs, or gallops Abdomen: Soft, tenderness to palpation, hypoactive bowel sounds, ND, incisions x 4 cdi, STEFANI drain with serosanginous drainage Extremities: No edema Skin: Warm, no rash, negative turgor. Results & Data Vital Signs (Past 12 Hours) Vital Signs Temp Pulse Pulse Resp BP Pulse Ox 11/18/18 07:56 36.5 C 51 L 16 106/64 93 11/18/18 06:20 96 11/18/18 02:40 36.5 C 71 18 111/61 97 11/18/18 01:30 36.4 C L 68 16 111/64 96 11/18/18 00:30 36.6 C 70 18 137/68 95 11/18/18 00:00 63 63 18 107/64 95 11/17/18 23:30 36.5 C 74 16 130/67 94 11/17/18 23:15 66 18 116/56 L 92 11/17/18 23:06 69 18 115/61 94 11/17/18 22:56 82 18 121/67 95 11/17/18 22:45 80 17 115/67 92 11/17/18 22:35 83 18 122/69 94 11/17/18 22:29 36.5 C 87 16 139/72 92 Laboratory Results Short CBC 11/17/18 11/18/18 Range/Units 17:59 05:26 WBC 20.17 H 14.81 H (4.8-10.8) K/uL Hgb 16.0 13.9 L (14.0-18.0) g/dL Hct 44.3 40.1 L (42-52) % Plt Count 225 205 (130-400) K/uL BMP 08/21/19 08/22/19 17:59 05:26 Sodium 138 139 Potassium 4.0 4.3 Chloride 108 H 108 H Carbon Dioxide 24 25 BUN 13 12 Creatinine 0.92 0.98 Glucose 103 H 138 H Calcium 8.9 7.8 L Cardiac Enzymes 11/17/18 Range/Units 17:59 Troponin I < 0.015 (0-0.045) ng/ml Liver Function 11/17/18 11/18/18 Range/Units 17:59 05:26 Total Bilirubin 1.3 H 1.5 H (0.2-1) mg/dl Direct Bilirubin 0.5 H (0-0.2) mg/dl AST 21 80 H (15-37) U/L ALT 39 101 H (12-78) U/L Alkaline Phosphatase 84 80 (45-117) U/L Albumin 3.5 2.7 L (3.4-5.0) gm/dl Urine 11/17/18 Range/Units 20:35 Urine Color Dark Yellow Urine Appearance Clear (Clear) Urine pH 6.5 (4.5-7.5) Ur Specific [place] 1.035 H (1.000-1.030) Urine Protein Trace H (Negative) Urine Glucose (UA) Negative (Negative) Medications Administered Hydrocodone Bitart/Acetaminophen ([employer] 5/325) 2 tab PO [id number] PRN PRN Reason: Pain Stop: 12/02/18 00:22 Last Admin: 11/18/18 06:23 Dose: 2 tab Documented by: [id number] Admin: 11/18/18 00:59 Dose: 2 tab Documented by: [id number] Heparin Sodium (Porcine) (Heparin Sodium (Porcine)) 5,000 units SQ Q12 [facility]AI Stop: 12/18/18 08:59 Last Admin: 11/18/18 10:16 Dose: 5,000 units Documented by: [id number] Cosigned by: [id number] Piperacillin Sod/Tazobactam (Sod 4.5 gm/ Dextrose) 120 mls @ 30 mls/hr IV Q8H [facility]; Protocol Stop: 11/28/18 01:59 Last Admin: 11/18/18 10:15 Dose: 30 mls/hr Documented by: [id number] Infusion: 11/18/18 04:58 Dose: 0 mls/hr Documented by: [id number] Admin: 11/18/18 01:29 Dose: 30 mls/hr Documented by: [id number] Sodium Chloride (Nss 1000ml) 1,000 mls @ 80 mls/hr IV .[id number] [facility]AI Stop: 12/18/18 00:22 Last Infusion: 11/18/18 05:05 Dose: 80 mls/hr Documented by: [id number] Admin: 11/18/18 00:55 Dose: 80 mls/hr Documented by: [id number] Senna/Docusate Sodium (Senokot S) 1 tab PO BID WAI Stop: 12/18/18 08:59 Last Admin: 11/18/18 08:39 Dose: 1 tab Documented by: [id number] Discontinued Medications Acetaminophen (Ofirmev) 1,000 mg IV NOW STA Stop: 11/17/18 17:49 Last Admin: 11/17/18 19:01 Dose: 1,000 mg Documented by: [id number] Bupivacaine HCl (Marcaine 0.5% Mpf) Confirm Administered Dose 30 ml .ROUTE .STK- MED ONE Stop: 11/17/18 20:25 Last Admin: 11/17/18 22:09 Dose: 10 ml Documented by: [id number] Sodium Chloride (Nss 1000ml) 1,000 mls @ 999 mls/hr IV .Q1H1M [facility]AI Stop: 11/17/18 18:45 Last Infusion: 11/17/18 20:38 Dose: 0 mls/hr Documented by: [id number] Admin: 11/17/18 19:02 Dose: 999 mls/hr Documented by: [id number] Acetaminophen (Ofirmev) 1,000 mg in 100 mls @ 400 mls/hr IV NOW ONE Stop: 11/18/18 00:37 Last Infusion: 11/18/18 01:10 Dose: 0 mls/hr Documented by: [id number] Admin: 11/18/18 00:55 Dose: 400 mls/hr Documented by: [id number] Ioversol (Optiray 320 100ml) 94 ml IV ONCE PRN PRN Reason: Interaction Checking Stop: 11/21/18 19:47 Last Admin: 11/17/18 19:48 Dose: 94 ml Documented by: [id number] Miscellaneous (Floseal Hemostatic Matrix 10ml) 10 ml TOP ONCE ONE Stop: 11/17/18 21:56 Last Admin: 11/17/18 22:11 Dose: 10 ml Documented by: [id number] Morphine Sulfate (Morphine Sulfate) 4 mg IV NOW STA Stop: 11/17/18 17:46 Last Admin: 11/17/18 19:01 Dose: 4 mg Documented by: [id number] Ondansetron HCl (Zofran) 4 mg IV NOW STA Stop: 11/17/18 17:46 Last Admin: 11/17/18 19:01 Dose: 4 mg Documented by: [id number] Piperacillin Sod/Tazobactam Sod (Zosyn) Confirm Administered Dose 4.5 gm .ROUTE .STK-MED ONE Stop: 11/17/18 20:31 Last Admin: 11/17/18 20:39 Dose: 4.5 gm Documented by: [id number]
[2018-11-18] MEDS: LEVALBUTEROL TARTRATE 15 GM HFA.AER.AD INH SCH (19:32)
[2018-11-19] MEDS: HYDROCODONE/ACETAMOPHEN 5/325MG TAB PO PRN ×3 (00:02→18:45)
[2018-11-19] MEDS: PIPERACILLIN/TAZOBACTAM 4.5 GM in DEXTROSE 5% 100 ML IV SCH (01:51)
[2018-11-19] MEDS: SODIUM CHLORIDE 0.9% 1000ML 1,000 ML IV SCH (04:23)
--- NOTE | 2018-11-19 07:11 | Surgery Progress Note ---
Date of Service November 19, 2018 Assessment & Plan (1) Gangrenous cholecystitis: overall stable- passing flatus- some pain drain serous- was difficult operation cont IV atbx 1-2 days- then po [facility]/ [facility] covering over weekend Results & Data Vital Signs (Past 12 Hours) Vital Signs Temp Pulse Resp BP Pulse Ox 11/18/18 22:56 36.6 C 47 L 16 107/65 96 PG Care Time/CCT Total # of Minutes Spent Total Time Spent with Patient: Total time spent is greater than 50% in coordi nation of care (as documented) at patient's floor/unit and/or counseling patient:
[2018-11-19 07:34] LABS: Basophils # (auto) 0.03 K/uL (0-0.2); Basophils % (auto) 0.3 %; Eosinophils # (auto) 0.18 K/uL (0-0.5); Eosinophils % (auto) 1.7 %; Hematocrit (blood only) 36.4 % (42-52); Hemoglobin 12.5 g/dL (14.0-18.0); Immature Granulocytes # (auto) 0.02 K/uL (0.00-0.02); Immature Granulocytes % (auto) 0.2 %; Lymphocytes # (auto) 3.82 K/uL (1.2-3.4); Lymphocytes % (auto) 37.1 %; Mean Corpuscular Hemoglobin 30.8 pg (25-34); Mean Corpuscular Hgb Conc 34.3 g/dL (32-36); Mean Corpuscular Volume 89.7 fL (80-100); Mean Platelet Volume 10.1 fL (7.4-10.4); Monocytes # (auto) 0.82 K/uL (0.11-0.59); Neutrophils # (auto) 5.43 K/uL (1.4-6.5); Neutrophils % (auto) 52.7 %; Platelet Count 217 K/uL (130-400); RDW Coefficient of Variation 12.5 % (11.5-14.5); RDW Standard Deviation 40.3 fL (36.4-46.3); Red Blood Count 4.06 M/uL (4.7-6.1)
[2018-11-19 08:02] LABS: Albumin Level 2.6 gm/dl (3.4-5.0); BUN Creatinine Ratio 12.3 (10-20); Calcium 8.1 mg/dl (8.5-10.1); Creatinine Clr Calc Pharmacy 109.9 ml/min; Est GFR (African American) 101.8; Est GFR (Non-African American) 87.8; Potassium 3.6 mmol/L (3.5-5.1)
[2018-11-19 08:11] LABS: Albumin Globulin Ratio 0.7 (0.9-2); Bilirubin,Total 0.5 mg/dl (0.2-1); Globulin 3.5 gm/dl (2.5-4.0); Total Protein 6.1 gm/dl (6.4-8.2)
[2018-11-19] MEDS: LEVALBUTEROL TARTRATE 15 GM HFA.AER.AD INH SCH ×4 (08:20→21:39)
[2018-11-19] MEDS: HEPARIN SOD 5,000 UNIT/0.5 ML VIAL SQ SCH ×2 (08:21→21:37)
[2018-11-19] MEDS: DOCUSATE SODIUM/SENNA 50/8.6MG TAB PO SCH ×2 (08:21→21:39)
[2018-11-19] MEDS: PIPERACILLIN/TAZOBACTAM 3.375 GM in DEXTROSE 5% 100 ML IV SCH ×2 (10:30→18:39)
[2018-11-19] MEDS ORDERED: Nursing to Pharmacy Communication ONE (11:19)
--- NOTE | 2018-11-19 19:16 | Hospitalist Progress Note ---
Date of Service November 19, 2018 Assessment & Plan (1) Acute cholecystitis: S/P lap cholecystectomy. POD # 2. Receiving IV piperacillin / tazobactam. WBC 20,000 --> 10,300. (2) Asthma: Respiratory status stable. Continue incentive spirometry and Xopenex. (3) DVT prophylaxis: SQ heparin. (4) Encounter for consultation: Thank you for this consultation. We will follow the patient with you during their hospital stay. My cell # is [phone]. You can reach a member of the [facility] Medicine Team 20/10 via pager @ [phone]. Subjective Recheck for medical management. Patient seen in their room around 1220. Feels better. Less postoperative abdominal pain. No nausea or vomiting. Passing flatus, but no stool. Performing incentive spirometry. Review of Systems: Constitutional- no fever. Cardiac- no chest pain. Pulmonary- no cough or SOB. GI- as noted above. - no urinary symptoms. Otherwise, as noted above. Physical Exam Constitutional: no acute distress Respiratory: no respiratory distress Auscultation: + wheezes (mild) Cardiovascular: Rate/Rhythm: regular rate and regular rhythm Heart Sounds: no gallop, no murmur and no cardiac rub Vessels: no JVD Extremities: no calf tenderness and no edema Gastrointestinal (Abdomen): Inspection/Auscultation: + abdomen distended (slightly); + abnormal bowel sounds (quiet) Skin: no rashes, warm and dry Psychiatric: Orientation: alert and oriented x 3 Results & Data Vital Signs (Past 12 Hours) Vital Signs Temp Pulse Resp BP Pulse Ox 11/19/18 15:54 36.4 C L 58 L 16 112/65 94 11/19/18 07:55 36.4 C L 49 L 16 101/64 95 Laboratory Results 11/19/18 07:09 11/19/18 07:09
[2018-11-20] MEDS: PIPERACILLIN/TAZOBACTAM 3.375 GM in DEXTROSE 5% 100 ML IV SCH ×3 (02:11→18:16)
[2018-11-20] MEDS: DOCUSATE SODIUM/SENNA 50/8.6MG TAB PO SCH ×2 (07:49→21:18)
[2018-11-20] MEDS: LEVALBUTEROL TARTRATE 15 GM HFA.AER.AD INH SCH ×4 (07:49→21:17)
[2018-11-20] MEDS: HEPARIN SOD 5,000 UNIT/0.5 ML VIAL SQ SCH ×2 (07:53→21:18)
[2018-11-20] MEDS: HYDROCODONE/ACETAMOPHEN 5/325MG TAB PO PRN ×2 (07:56→18:24)
--- NOTE | 2018-11-20 07:58 | Surgery Progress Note ---
Date of Service November 20, 2018 Assessment & Plan (1) Acute cholecystitis: Postoperative day number laparoscopic cholecystectomy for acute cholecystitis Doing well Continue analgesics Continue antibiotics diet Continues to do well for tentative discharge tomorrow Subjective Postoperative day #3 Feels well Having very little pain but in the right upper quadrant Tolerating regular diet Has not had bowel movement yet STEFANI had 50 cc out yesterday and 20 today with serosanguineous fluid Physical Exam Gastrointestinal (Abdomen): Inspection/Auscultation: + abdominal surgical incision (Clean, dry and intact); abdomen not distended Percussion/Palpation: + abdomen tender (Incisional only) and abdomen soft Results & Data Vital Signs (Past 12 Hours) Vital Signs Temp Pulse Resp BP Pulse Ox 11/19/18 23:21 36.8 C 58 L 15 114/60 94 Laboratory Results 11/19/18 Range/Units 07:09 Sodium 140 (136-145) mmol/L Potassium 3.6 D (3.5-5.1) mmol/L Chloride 109 H (98-107) mmol/L Carbon Dioxide 28 (21-32) mmol/L Anion Gap 4.0 (3-11) BUN 13 (7-18) mg/dl Creatinine 1.08 (0.6-1.4) mg/dl Est Cr Clr Drug Dosing 109.9 ml/min Est GFR ( Amer) 101.8 Est GFR (Non-Af Amer) 87.8 BUN/Creatinine Ratio 12.3 (10-20) Glucose 107 H (70-99) mg/dl Calcium 8.1 L (8.5-10.1) mg/dl Total Bilirubin 0.5 D (0.2-1) mg/dl AST 30 (15-37) U/L ALT 78 (12-78) U/L Alkaline Phosphatase 68 (45-117) U/L Total Protein 6.1 L (6.4-8.2) gm/dl Albumin 2.6 L (3.4-5.0) gm/dl Globulin 3.5 (2.5-4.0) gm/dl Albumin/Globulin Ratio 0.7 L (0.9-2)
[2018-11-20 09:45] LABS: Creatinine Clr Calc Pharmacy 113.1 ml/min; Est GFR (African American) 105.3; Est GFR (Non-African American) 90.9
--- NOTE | 2018-11-20 13:22 | Hospitalist Progress Note ---
Date of Service November 20, 2018 Assessment & Plan (1) Acute cholecystitis: S/P lap cholecystectomy. POD # 3. Receiving IV piperacillin / tazobactam. WBC 20,000 --> 10,300. (2) Asthma: Respiratory status stable. Continue incentive spirometry and Xopenex. (3) DVT prophylaxis: SQ heparin. (4) Encounter for consultation: Thank you for this consultation. We will follow the patient with you during their hospital stay. My cell # is [phone]. You can reach a member of the [facility] Medicine Team 20/10 via pager @ [phone]. Subjective Recheck for medical management. Patient seen in their room around 1110. Doing well. Less postoperative abdominal pain. No nausea or vomiting. Passing flatus, but still no stool. Performing incentive spirometry. Review of Systems: Constitutional- no fever. Cardiac- no chest pain. Pulmonary- no cough or SOB. GI- as noted above. - no urinary symptoms. Otherwise, as noted above. Physical Exam Constitutional: no acute distress Respiratory: no respiratory distress Auscultation: + wheezes (mild) Cardiovascular: Rate/Rhythm: regular rate and regular rhythm Heart Sounds: no gallop, no murmur and no cardiac rub Vessels: no JVD Extremities: no calf tenderness and no edema Gastrointestinal (Abdomen): Inspection/Auscultation: + abdomen distended (slightly); + abnormal bowel sounds (quiet) Skin: no rashes, warm and dry Psychiatric: Orientation: alert and oriented x 3 Results & Data Vital Signs (Past 12 Hours) Vital Signs Temp Pulse Resp BP Pulse Ox 11/20/18 07:58 36.8 C 48 L 16 112/68 96 Laboratory Results 11/19/18 07:09 11/20/18 08:56
[2018-11-21] MEDS: PIPERACILLIN/TAZOBACTAM 3.375 GM in DEXTROSE 5% 100 ML IV SCH ×2 (02:06→10:17)
[2018-11-21 06:48] LABS: Creatinine Clr Calc Pharmacy 122.4 ml/min; Est GFR (African American) 115.9
--- NOTE | 2018-11-21 07:32 | Surgery Progress Note ---
Date of Service November 21, 2018 Assessment & Plan (1) Gangrenous cholecystitis: Postop day 4 status post laparoscopic cholecystectomy Doing well Can return back to correctional facility Discussed postoperative activity restrictions Can follow-up with Dr. Jimenez in 2 weeks Subjective Postoperative day #4 status post laparoscopic cholecystectomy for gangrenous cholecystitis Had some mild upper abdominal discomfort Tolerated diet STEFANI drain with 30 cc out yesterday and 5 cc out last shift all serosanguineous Denies nausea and vomiting Physical Exam Gastrointestinal (Abdomen): Inspection/Auscultation: + abdominal surgical incision (Clean, dry and intact); abdomen not distended Percussion/Palpation: + abdomen tender (Incisional only with no additional tenderness in the area of his discomfort) and abdomen soft Results & Data Vital Signs (Past 12 Hours) Vital Signs Temp Pulse Resp BP Pulse Ox 11/21/18 06:59 36.7 C 58 L 20 129/83 95 11/20/18 23:17 36.7 C 69 16 125/71 95
[2018-11-21] MEDS: LEVALBUTEROL TARTRATE 15 GM HFA.AER.AD INH SCH ×2 (07:36→12:26)
[2018-11-21] MEDS: DOCUSATE SODIUM/SENNA 50/8.6MG TAB PO SCH (07:37)
[2018-11-21] MEDS: HYDROCODONE/ACETAMOPHEN 5/325MG TAB PO PRN ×2 (07:37→14:47)
[2018-11-21] MEDS: HEPARIN SOD 5,000 UNIT/0.5 ML VIAL SQ SCH (07:38)
--- NOTE | 2018-11-21 12:45 | Hospitalist Progress Note ---
Date of Service November 21, 2018 Assessment & Plan (1) Acute cholecystitis: S/P lap cholecystectomy. POD # 4. Doing well postop. Receiving IV piperacillin / tazobactam. Afebrile. WBC 20,000 --> 10,300. (2) Asthma: Respiratory status stable. Continue incentive spirometry and Xopenex. (3) DVT prophylaxis: SQ heparin. (4) Encounter for consultation: Thank you for this consultation. We will follow the patient with you during their hospital stay. My cell # is [phone]. You can reach a member of the [facility] Medicine Team 20/10 via pager @ [phone]. Subjective Recheck for medical management. Patient seen in their room around 1050. Doing well. Postoperative abdominal pain improved. No nausea or vomiting. Passing flatus, but still no stool. Respiratory symptoms stable. No significant cough or wheezing. Performing incentive spirometry. Review of Systems: Constitutional- no fever. Cardiac- no chest pain. Pulmonary- no cough or SOB. GI- as noted above. - no urinary symptoms. Otherwise, as noted above. Physical Exam Constitutional: no acute distress Respiratory: no respiratory distress Auscultation: + wheezes (minimal) Cardiovascular: Rate/Rhythm: regular rate and regular rhythm Heart Sounds: no gallop, no murmur and no cardiac rub Vessels: no JVD Extremities: no calf tenderness and no edema Gastrointestinal (Abdomen): Inspection/Auscultation: normal bowel sounds (quiet); abdomen not distended (slightly) Percussion/Palpation: abdomen soft Skin: no rashes, warm and dry Psychiatric: Orientation: alert and oriented x 3 Results & Data Vital Signs (Past 12 Hours) Vital Signs Temp Pulse Resp BP Pulse Ox 11/21/18 06:59 36.7 C 58 L 20 129/83 95 Laboratory Results 11/19/18 07:09 11/21/18 05:32
--- NOTE | 2018-11-24 08:39 | Discharge Summary ---
PRINCIPAL DIAGNOSIS: Acute necrotizing cholecystitis with chronic cholecystitis and severe adhesions. HISTORY OF PRESENT ILLNESS: The patient is a 38-year-old inmate who presented to the Emergency Room with acute abdominal pain, found on CAT scan to have severe acute cholecystitis with elevated white blood cell count and fever. HOSPITAL COURSE: He was taken to the operating room on 11/17/2018 where he underwent laparoscopic cholecystectomy, which was somewhat difficult because of his severe acute and chronic disease. He did have drain placement. Postoperatively, he was kept on IV antibiotics. He did progress well in both diet and activity and was felt stable for discharge on 11/21/2018 to be followed in the surgical clinic within 1-2 weeks.
== END 2018-11-21 17:11 | DRG 419 ==
LOC: ED 16:37 → OR 20:46 → 3W 22:12